=== PATIENT | male | born 1955 | race African-American/Black ===

== ENCOUNTER 2016-10-10 08:49 | Emergency (ER) | payer OTHER ==
[~2016-10-10] VITALS: Ht 182.9 cm; Wt 59.0 kg
[~2016-10-10 08:49] MED LIST: ACET30TA15 PO; ASPI81CH43 PO; ATOR20TA50 PO; CAR125T PO; CYAN500T2 PO; ENA2.5T PO; FER325T PO; FOLI1TAB51 PO; FURO20TA3 PO; MEGE40TA15 PO; PANT40TA2 PO; SPIR25TA88 PO; SUCR1TAB36 PO; THIA100T11 PO
[2016-10-10] MEDS ORDERED: KETOROLAC TROMETH 30 MG/ML 1ML VIAL IV ONE (10:00)
[2016-10-10 10:33] LABS: Hemoglobin 11.1 g/dL (13.5-17.5); Mean Corpuscular Hgb Conc. 31.8 g/dL (32.0-36.0); SUSPECT VIEW TRANSMISSION
[2016-10-10] MEDS ORDERED: HYDROcodone-ACET 5/325MG TAB PO ONE (11:00)
[2016-10-10 11:10] LABS: Basophils # (auto) 0 uL; Basophils % (auto) 0.5 % (0.0-2.0); Eosinophils # (auto) 0.5 uL; Eosinophils % (auto) 7.2 % (0.0-7.0); Lymphocytes # (auto) 2.1 uL; Lymphocytes % (auto) 28.6 % (10.0-50.0); Mean Corpuscular Volume 94.4 fL (80.0-100.0); Mean Platelet Volume 11.6 fL (7.4-10.4); Monocytes # (auto) 1.1 uL; Monocytes % (auto) 14.9 % (0.0-12.0); Neutrophils # (auto) 3.6 uL; Neutrophils % (auto) 48.8 % (37.0-80.0); Nucleated Red Blood Cells % 3.6 %; Platelet Count (auto) 231 10^3/uL (140-450); Red Cell Distribution Width 14.9 % (11.6-16.0); White Blood Cell 7.4 10^3/uL (4.4-10.8)
[2016-10-10 11:22] LABS: Albumin 2.9 g/dL (3.4-5.0); Alkaline Phosphatase 102 U/L (45-117); Amylase 119 U/L (25-115); Anion Gap 9 (5-15); Aspartate Aminotransferase 30 U/L (15-37); BUN/Creatinine Ratio 12.9; Bilirubin, Total 0.4 mg/dL (0.2-1.0); Blood Urea Nitrogen 16 mg/dL (7-18); Calcium 8.2 mg/dL (8.5-10.1); Carbon Dioxide 26 mmol/L (21-32); Chloride 107 mmol/L (98-107); GFR African American 76 mL/min; GFR Non-African American 63 mL/min; Glucose 145 mg/dL (74-106); Potassium 4.3 mmol/L (3.5-5.1); Sodium 142 mmol/L (136-145); Total Protein 7.1 g/dL (6.4-8.2)
[2016-10-10 12:54] VITALS: BP 115/59
== END 2016-10-10 13:32 | disposition home or self-care (01) ==
LOC: ER 08:49
DX: S33.5XXA Sprain of ligaments of lumbar spine, initial encounter (principal); R51 Headache; I10 Essential (primary) hypertension; I25.2 Old myocardial infarction; F17.210 Nicotine dependence, cigarettes, uncomplicated; Z86.73 Personal history of transient ischemic attack (TIA), and cerebral infarction without residual deficits; Z90.49 Acquired absence of other specified parts of digestive tract; Z98.61 Coronary angioplasty status; Z79.82 Long term (current) use of aspirin; X58.XXXA Exposure to other specified factors, initial encounter; Y93.89 Activity, other specified; Y99.8 Other external cause status; Y92.89 Other specified places as the place of occurrence of the external cause
CPT/HCPCS: 36415; 72110; 80053; 82150; 83690; 84484; 85025; 93005; 96374; 99285; J1885

== ENCOUNTER 2017-02-25 08:53 | Emergency (ER) | payer OTHER ==
[~2017-02-25] VITALS: Ht 182.9 cm; Wt 59.0 kg
[2017-02-25] MEDS ORDERED: SODIUM CHLORIDE 0.9% 1,000 ML IV ONE ×2 (09:26)
[2017-02-25 09:49] LABS: CONDITION Y; DEFINITIVE SEE PRINTOUT; Hematocrit 44.1 % (41.0-53.0); Hemoglobin 14.2 g/dL (13.5-17.5); Mean Corpuscular Hemoglobin 28.5 pg (28.0-32.0); Mean Corpuscular Hgb Conc. 32.3 g/dL (32.0-36.0); Mean Corpuscular Volume 88.4 fL (80.0-100.0); Mean Platelet Volume 12.5 fL (7.4-10.4); Platelet Count (auto) 372 10^3/uL (140-450); Red Cell Distribution Width 19.4 % (11.6-16.0); SUSPECT SEE PRINTOUT; White Blood Cell 5.5 10^3/uL (4.4-10.8)
[2017-02-25 09:56] LABS: Urine Blood Negative /uL (Negative); Urine Color Red (Yellow); Urine Glucose Normal (Normal); Urine Hyaline Cast MANY /lpf (0 - 2); Urine Ketone Negative (Negative); Urine Mucus FEW (None Seen); Urine Nitrite Negative (Negative); Urine RBC 3 /hpf (0 - 3); Urine Squamous Epithelial Cell FEW /hpf (<5); Urine pH 5.5 (5.0-8.0)
[2017-02-25 10:03] LABS: Urine Bilirubin Negative (Negative)
[2017-02-25 10:10] LABS: Metamyelocytes % 0; Myelocytes % 0; Promyelocytes % 0; Reactive Lymphocytes 0
[2017-02-25] MEDS ORDERED: ONDANSETRON HCL 4 MG/2 ML VIAL IV ONE (10:15)
[2017-02-25] MEDS ORDERED: MORPHINE SULFATE 4 MG/ML SYRG IV ONE (10:15)
[2017-02-25 10:24] LABS: Platelet Estimate Adequate
[2017-02-25 10:25] LABS: Anisocytosis Slight
[2017-02-25 10:36] LABS: Albumin 3.1 g/dL (3.4-5.0); BUN/Creatinine Ratio 10.3; Bilirubin, Total 0.6 mg/dL (0.2-1.0); Calcium 8.6 mg/dL (8.5-10.1); Potassium 3.2 mmol/L (3.5-5.1)
[2017-02-25 11:41] VITALS: BP 113/77
== END 2017-02-25 12:03 | disposition short-term general hospital (02) ==
LOC: ER 08:53
DX: K85.90 Acute pancreatitis without necrosis or infection, unspecified (principal); I10 Essential (primary) hypertension; I25.2 Old myocardial infarction; Z86.73 Personal history of transient ischemic attack (TIA), and cerebral infarction without residual deficits; Z79.82 Long term (current) use of aspirin; Z90.81 Acquired absence of spleen; F17.210 Nicotine dependence, cigarettes, uncomplicated
CPT/HCPCS: 36415; 71010; 74176; 80053; 81001; 82150; 83690; 85007; 85027; 93005; 96361; 96374; 96375; 99285; J2270; J2405; J7030

== ENCOUNTER 2017-05-10 09:47 | Inpatient (IN) | payer OTHER ==
[2017-05-09 20:00] VITALS: BP 103/80
[~2017-05-10] VITALS: Ht 185.4 cm; Wt 65.4 kg
[2017-05-10] MEDS ORDERED: KETOROLAC TROMETH 30 MG/ML 1ML VIAL IV ONE ×2 (10:30→12:45)
[2017-05-10 11:06] LABS: Basophils # (auto) 0.1 uL; Eosinophils # (auto) 0.4 uL; Hemoglobin 9.4 g/dL (13.5-17.5); Mean Platelet Volume 10.6 fL (6.9-10.8)
[2017-05-10 11:07] LABS: Basophils % (auto) 1.2 % (0.0-2.0); Eosinophils % (auto) 5.5 % (0.0-7.0); Hematocrit 30.6 % (41.0-53.0); Lymphocytes # (auto) 1.9 uL; Lymphocytes % (auto) 26.6 % (10.0-50.0); Mean Corpuscular Hemoglobin 27.4 pg (28.0-32.0); Mean Corpuscular Hgb Conc. 30.9 g/dL (32.0-36.0); Mean Corpuscular Volume 88.7 fL (80.0-100.0); Monocytes # (auto) 1.2 uL; Monocytes % (auto) 16.6 % (0.0-12.0); Neutrophils # (auto) 3.5 uL; Neutrophils % (auto) 50.1 % (37.0-80.0); Nucleated Red Blood Cells % 0.4 %; Platelet Count (auto) 292 10^3/uL (140-450); Red Cell Distribution Width 17.7 % (11.8-14.3)
[2017-05-10 11:28] LABS: Albumin 3.3 g/dL (3.4-5.0); BUN/Creatinine Ratio 11.6; Bilirubin, Total 0.7 mg/dL (0.2-1.0); Calcium 8.4 mg/dL (8.5-10.1); Potassium 3.4 mmol/L (3.5-5.1)
[2017-05-10 11:31] LABS: Magnesium 2.4 mg/dL (1.6-2.6)
[2017-05-10 12:06] LABS: B-Type Natriuretic Peptide 1927.22 pg/mL (0-100); Temperature: 23.9 C (20.0-25.0)
[2017-05-10] MEDS ORDERED: FUROSEMIDE 40 MG/4 ML VIAL IV ONE (12:45)
[2017-05-10 13:16] LABS: Burr Cells FEW; Giant Platelets Few; Platelet Estimate Adequate; Schistocytes FEW
[2017-05-10] MEDS ORDERED: MORPHINE SULF INJ 2 MG/ML SYRINGE 1ML IV PRN (14:30)
[2017-05-10] MEDS ORDERED: TEMAZEPAM 15 MG CAP PO PRN (14:30)
[2017-05-10] MEDS ORDERED: NITROGLYCERIN 0.4 MG SL TAB SL PRN (14:30)
[2017-05-10] MEDS ORDERED: DOCUSATE SOD 100 MG CAP PO PRN (14:30)
[2017-05-10] MEDS ORDERED: ONDANSETRON HCL 4 MG/2 ML VIAL IV PRN (14:30)
[2017-05-10] MEDS ORDERED: ACETAMINOPHEN 325 MG TAB PO PRN (14:30)
[2017-05-10] MEDS ORDERED: HYDROcodone-ACET 5/325MG TAB PO PRN (14:30)
[2017-05-10] MEDS: SUCRALFATE 1 GM/10 ML ORAL SUSP PO SCH ×2 (17:45→21:15)
[2017-05-10] MEDS: FERROUS SULFATE 325 MG TAB PO SCH (17:45)
[2017-05-10] MEDS: SPIRONOLACTONE 25 MG TAB PO SCH (17:45)
[2017-05-10] MEDS: BOOST PLUS 8 ounce PO SCH (17:46)
[2017-05-10] MEDS: FUROSEMIDE 40 MG/4 ML VIAL IV SCH (17:55)
[2017-05-10] MEDS: SODIUM CHLOR 0.9% PF (SALINE LOCK) 10ML VIAL IV SCH (21:15)
[2017-05-10] MEDS: PANTOPRAZOLE 40 MG TAB PO SCH (21:15)
[2017-05-10] MEDS: CARVEDILOL 12.5 MG TAB PO SCH (21:15)
[2017-05-10] MEDS: FAMOTIDINE 20 MG TAB PO SCH (21:16)
[2017-05-10] MEDS: MORPHINE SULF INJ 2 MG/ML SYRINGE 1ML IV PRN (21:16)
[2017-05-10 22:00] VITALS: BP 103/80
[2017-05-10] MEDS ORDERED: ATORVASTATIN 20 MG TAB PO SCH (22:00)
[2017-05-11 05:00] VITALS: BP 100/71
[2017-05-11] MEDS: SODIUM CHLOR 0.9% PF (SALINE LOCK) 10ML VIAL IV SCH ×2 (06:00→13:31)
[2017-05-11 06:03] LABS: Basophils # (auto) 0.1 uL; Eosinophils # (auto) 0.4 uL; Eosinophils % (auto) 5.9 % (0.0-7.0); Hematocrit 28.1 % (41.0-53.0); Hemoglobin 8.9 g/dL (13.5-17.5); Lymphocytes % (auto) 39.9 % (10.0-50.0); Mean Corpuscular Hemoglobin 28.1 pg (28.0-32.0); Mean Corpuscular Hgb Conc. 31.8 g/dL (32.0-36.0); Mean Corpuscular Volume 88.3 fL (80.0-100.0); Mean Platelet Volume 10.8 fL (6.9-10.8); Monocytes # (auto) 1.2 uL; Monocytes % (auto) 16.1 % (0.0-12.0); Neutrophils # (auto) 2.8 uL; Neutrophils % (auto) 37.1 % (37.0-80.0); Nucleated Red Blood Cells % 0.3 %; Platelet Count (auto) 262 10^3/uL (140-450); Red Cell Distribution Width 17.8 % (11.8-14.3); White Blood Cell 7.6 10^3/uL (4.4-10.8)
[2017-05-11 06:18] LABS: Albumin 2.8 g/dL (3.4-5.0); Calcium 8.4 mg/dL (8.5-10.1); Potassium 3.8 mmol/L (3.5-5.1)
[2017-05-11 06:20] LABS: BUN/Creatinine Ratio 16.9
[2017-05-11 06:23] LABS: Bilirubin, Total 0.4 mg/dL (0.2-1.0); Total Protein 5.8 g/dL (6.4-8.2)
[2017-05-11] MEDS: SUCRALFATE 1 GM/10 ML ORAL SUSP PO SCH ×2 (06:34→10:38)
[2017-05-11] MEDS: SPIRONOLACTONE 25 MG TAB PO SCH (06:34)
[2017-05-11] MEDS: FUROSEMIDE 40 MG/4 ML VIAL IV SCH (06:35)
[2017-05-11] MEDS: BOOST PLUS 8 ounce PO SCH ×2 (07:26→11:01)
[2017-05-11] MEDS: MORPHINE SULF INJ 2 MG/ML SYRINGE 1ML IV PRN (07:45)
[2017-05-11] MEDS: FERROUS SULFATE 325 MG TAB PO SCH (07:45)
[2017-05-11 08:00] VITALS: BP 107/77
[2017-05-11 09:05] LABS: Urine Bilirubin Negative (Negative); Urine Blood Negative /uL (Negative); Urine Color Yellow (Yellow); Urine Glucose Normal (Normal); Urine Ketone Negative (Negative); Urine Nitrite Negative (Negative); Urine RBC <1 /hpf (0 - 3); Urine Squamous Epithelial Cell FEW /hpf (<5); Urine Urobilinogen Normal (Negative)
[2017-05-11] MEDS: FAMOTIDINE 20 MG TAB PO SCH (09:25)
[2017-05-11] MEDS: CARVEDILOL 12.5 MG TAB PO SCH (09:25)
[2017-05-11] MEDS: PANTOPRAZOLE 40 MG TAB PO SCH (09:26)
[2017-05-11] MEDS ORDERED: ENALAPRIL MALEATE 2.5 MG TAB PO SCH (10:00)
[2017-05-11] MEDS ORDERED: ASPirin-EC 81 mg tab PO SCH (10:00)
[2017-05-11] MEDS ORDERED: MULTIPLE VITAMIN TAB PO SCH (10:00)
[2017-05-11] MEDS ORDERED: CYANOCOBALAMIN 500 MCG TAB PO SCH (10:00)
[2017-05-11] MEDS ORDERED: amLODIPine BESYLATE 5 MG TAB PO SCH (10:00)
[2017-05-11 11:57] VITALS: BP 107/77
[2017-05-11 13:22] VITALS: BP 107/77
== END 2017-05-11 12:00 | disposition home or self-care (01) | DRG 194 ==
LOC: ER 09:47 → TELE 09:48 → TELE-E-ADS 16:54 → TELE-CENTR 17:34
PROVIDERS: ADMIT Internal Medicine; ATTEND Internal Medicine
DX: I13.0 Hypertensive heart and chronic kidney disease with heart failure and stage 1 through stage 4 chronic kidney disease, or unspecified chronic kidney disease (principal); E44.0 Moderate protein-calorie malnutrition; F17.210 Nicotine dependence, cigarettes, uncomplicated; E87.6 Hypokalemia; D50.9 Iron deficiency anemia, unspecified; Z68.1 Body mass index [BMI] 19.9 or less, adult; I25.10 Atherosclerotic heart disease of native coronary artery without angina pectoris; I50.43 Acute on chronic combined systolic (congestive) and diastolic (congestive) heart failure; N18.2 Chronic kidney disease, stage 2 (mild); Z79.899 Other long term (current) drug therapy; I25.2 Old myocardial infarction; Z86.718 Personal history of other venous thrombosis and embolism; Z86.73 Personal history of transient ischemic attack (TIA), and cerebral infarction without residual deficits; Z98.61 Coronary angioplasty status
CPT/HCPCS: 36415; 71020; 80053; 81001; 83735; 83880; 84484; 85025; 85379; 93005; 93306; 96374; 96375; 96376; 99291; J1885

== ENCOUNTER 2017-06-29 09:15 | Emergency (ER) | payer OTHER ==
[~2017-06-29] VITALS: Ht 185.4 cm; Wt 55.3 kg
[~2017-06-29 09:15] MED LIST changes: -ACET30TA15 PO; -CYAN500T2 PO; -ENA2.5T PO; -FURO20TA3 PO; +FURO40TA PO
[2017-06-29 09:42] VITALS: BP 117/83
== END 2017-06-29 09:59 | disposition home or self-care (01) ==
LOC: ER 09:15
DX: J20.9 Acute bronchitis, unspecified (principal); I13.10 Hypertensive heart and chronic kidney disease without heart failure, with stage 1 through stage 4 chronic kidney disease, or unspecified chronic kidney disease; I50.9 Heart failure, unspecified; N18.9 Chronic kidney disease, unspecified; I25.2 Old myocardial infarction; Z86.73 Personal history of transient ischemic attack (TIA), and cerebral infarction without residual deficits; Z79.899 Other long term (current) drug therapy; Z87.891 Personal history of nicotine dependence
CPT/HCPCS: 99283; J7030

== ENCOUNTER 2017-07-14 12:46 | Inpatient (IN) | payer OTHER ==
[~2017-07-14] VITALS: Ht 182.9 cm; Wt 51.5 kg
[2017-07-14] MEDS ORDERED: SODIUM CHLORIDE 0.9% 1,000 ML IV ONE (12:59)
[2017-07-14] MEDS ORDERED: ASPirin 81 mg TAB PO ONE (13:00)
[2017-07-14 13:39] LABS: Eosinophils # (auto) 0.1 uL; Hemoglobin 10.8 g/dL (13.5-17.5); Mean Platelet Volume 11.1 fL (6.9-10.8); Monocytes # (auto) 0.4 uL; Monocytes % (auto) 7.4 % (0.0-12.0)
[2017-07-14 13:41] LABS: Basophils # (auto) 0.1 uL; Basophils % (auto) 1.2 % (0.0-2.0); Eosinophils % (auto) 1.5 % (0.0-7.0); Hematocrit 36.1 % (41.0-53.0); Lymphocytes # (auto) 2.7 uL; Lymphocytes % (auto) 51.6 % (10.0-50.0); Mean Corpuscular Hemoglobin 25.4 pg (28.0-32.0); Mean Corpuscular Hgb Conc. 29.9 g/dL (32.0-36.0); Mean Corpuscular Volume 85.2 fL (80.0-100.0); Neutrophils % (auto) 38.3 % (37.0-80.0); Platelet Count (auto) 273 10^3/uL (140-450); White Blood Cell 5.2 10^3/uL (4.4-10.8)
[2017-07-14 13:43] LABS: Nucleated Red Blood Cells % 3.3 %; Red Cell Distribution Width 20.5 % (11.8-14.3)
[2017-07-14 13:53] LABS: Lactic Acid w/Reflex 3.6 mmol/L (0.4-2.0)
[2017-07-14 13:54] LABS: INR 1.25 (0.9-1.15); Partial Thromboplastin Time 28.5 sec (22.64-33.71); Prothrombin Time 13.7 sec (9.37-12.3)
[2017-07-14 13:59] LABS: B-Type Natriuretic Peptide 2183.32 pg/mL (0-100)
[2017-07-14 14:03] LABS: Albumin 3.6 g/dL (3.4-5.0); Alkaline Phosphatase 96 U/L (45-117); Anion Gap 11 (5-15); Aspartate Aminotransferase 22 U/L (15-37); BUN/Creatinine Ratio 11.6; Bilirubin, Total 0.7 mg/dL (0.2-1.0); Blood Urea Nitrogen 20 mg/dL (7-18); Calcium 8.5 mg/dL (8.5-10.1); Carbon Dioxide 24 mmol/L (21-32); Chloride 105 mmol/L (98-107); GFR African American 52 mL/min; GFR Non-African American 43 mL/min; Glucose 185 mg/dL (74-106); Potassium 3.5 mmol/L (3.5-5.1); Sodium 140 mmol/L (136-145); Total Protein 7.9 g/dL (6.4-8.2)
[2017-07-14 14:04] LABS: Temperature: 22.1 C (20.0-25.0)
[2017-07-14] MEDS ORDERED: metroNIDAZOLE 500MG/100ML 100 ML IV ONE (14:15)
[2017-07-14] MEDS ORDERED: PIPERACILLIN-TAZOB 3.375GM 50 ML IV ONE (14:15)
[2017-07-14 14:25] LABS: REFLEX LACTIC ACID YES OR NO YES
[2017-07-14] MEDS ORDERED: FUROSEMIDE 20 MG/2 ML VIAL IV ONE (14:30)
[2017-07-14 14:40] LABS: Anisocytosis Slight; Hypochromia Slight; Platelet Estimate Adequate
[2017-07-14 14:41] LABS: Burr Cells FEW; Giant Platelets Few
[2017-07-14] MEDS ORDERED: MORPHINE SULF INJ 2 MG/ML SYRINGE 1ML IV PRN (15:00)
[2017-07-14] MEDS ORDERED: ONDANSETRON HCL 4 MG/2 ML VIAL IV PRN (15:00)
[2017-07-14] MEDS ORDERED: NITROGLYCERIN 0.4 MG SL TAB SL PRN (15:00)
[2017-07-14] MEDS ORDERED: POTASSIUM CHL 10% (20 MEQ/15ML) 15ml ORAL SOLN PO ONE (15:00)
[2017-07-14 15:30] VITALS: BP 131/70
[2017-07-14] MEDS ORDERED: FUROSEMIDE 20 MG/2 ML VIAL IV SCH (18:00)
[2017-07-14] MEDS: HYDROcodone-ACET 5/325MG TAB PO PRN (18:11)
[2017-07-14] MEDS: FERROUS SULFATE 325 MG TAB PO SCH (18:11)
[2017-07-14] MEDS: IPRATROPIUM BROM 0.5 MG/2.5ML INH SOL NEB SCH (19:30)
[2017-07-14 20:15] LABS: Urine Bilirubin Negative (Negative); Urine Blood Negative /uL (Negative); Urine Color Yellow (Yellow); Urine Glucose Normal (Normal); Urine Hyaline Cast MOD /lpf (0 - 2); Urine Ketone Negative (Negative); Urine Nitrite Negative (Negative); Urine RBC 1 /hpf (0 - 3); Urine Squamous Epithelial Cell FEW /hpf (<5); Urine Urobilinogen Normal (Negative); Urine pH 5.5 (5.0-8.0)
[2017-07-14 22:00] VITALS: BP 104/61
[2017-07-14] MEDS: APIXABAN 2.5 MG TAB PO SCH (22:03)
[2017-07-14] MEDS: CARVEDILOL 3.125 MG TAB PO SCH (22:03)
[2017-07-14] MEDS: ATORVASTATIN 20 MG TAB PO SCH (22:04)
[2017-07-14] MEDS ORDERED: MORPHINE SULF INJ 2 MG/ML SYRINGE 1ML IV ONE (22:30)
[2017-07-14 23:00] VITALS: BP 104/61
[2017-07-15] MEDS ORDERED: PNEUMOCOCCAL VACC POLYS 25 MCG/0.5 ML VIAL IM SCH (04:15)
[2017-07-15 06:00] VITALS: BP 99/67
[2017-07-15] MEDS: IPRATROPIUM BROM 0.5 MG/2.5ML INH SOL NEB SCH ×4 (06:05→18:29)
[2017-07-15] MEDS: ALBUTEROL SULF 2.5 MG/0.5ML(0.5%) NEB SOLN NEB PRN ×2 (06:05→11:51)
[2017-07-15 07:12] LABS: Calcium 8.6 mg/dL (8.5-10.1); Potassium 3.9 mmol/L (3.5-5.1)
[2017-07-15 07:21] LABS: Basophils # (auto) 0.1 uL; Basophils % (auto) 1.1 % (0.0-2.0); Platelet Count (auto) 243 10^3/uL (140-450)
[2017-07-15 07:30] VITALS: BP 99/62
[2017-07-15 07:30] LABS: Eosinophils # (auto) 0.2 uL; Eosinophils % (auto) 3.3 % (0.0-7.0); Hematocrit 30.4 % (41.0-53.0); Hemoglobin 9.5 g/dL (13.5-17.5); Lymphocytes # (auto) 2.2 uL; Mean Corpuscular Hemoglobin 25.9 pg (28.0-32.0); Mean Corpuscular Hgb Conc. 31.3 g/dL (32.0-36.0); Mean Corpuscular Volume 82.7 fL (80.0-100.0); Mean Platelet Volume 11.2 fL (6.9-10.8); Monocytes # (auto) 0.7 uL; Monocytes % (auto) 11.7 % (0.0-12.0); Neutrophils # (auto) 2.6 uL; Neutrophils % (auto) 45.9 % (37.0-80.0); White Blood Cell 5.8 10^3/uL (4.4-10.8)
[2017-07-15 07:40] LABS: Nucleated Red Blood Cells % 3.3 %; Red Cell Distribution Width 20.3 % (11.8-14.3)
[2017-07-15 09:00] VITALS: BP 103/73
[2017-07-15] MEDS: APIXABAN 2.5 MG TAB PO SCH ×2 (09:29→22:26)
[2017-07-15] MEDS: PANTOPRAZOLE 40 MG TAB PO SCH (09:29)
[2017-07-15] MEDS: SPIRONOLACTONE 25 MG TAB PO SCH (09:29)
[2017-07-15] MEDS: ASPirin 81 mg TAB PO SCH (09:30)
[2017-07-15] MEDS: ENALAPRIL MALEATE 2.5 MG TAB PO SCH (09:30)
[2017-07-15] MEDS: CARVEDILOL 3.125 MG TAB PO SCH ×2 (09:30→22:25)
[2017-07-15] MEDS: FERROUS SULFATE 325 MG TAB PO SCH ×2 (09:31→17:34)
[2017-07-15] MEDS: HYDROcodone-ACET 5/325MG TAB PO PRN ×2 (09:32→17:34)
[2017-07-15] MEDS ORDERED: NITROGLYCERIN 0.4 MG SL TAB SL ONE (10:00)
[2017-07-15] MEDS ORDERED: FUROSEMIDE 40 MG/4 ML VIAL IV ONE (10:00)
[2017-07-15] MEDS ORDERED: POTASSIUM CHL 20 Meq TABLET PO SCH (10:00)
[2017-07-15] MEDS ORDERED: FUROSEMIDE 40 MG/4 ML VIAL IV SCH (10:00)
[2017-07-15 13:00] VITALS: BP 93/68
[2017-07-15 17:00] VITALS: BP 92/66
[2017-07-15 22:00] VITALS: BP 97/64
[2017-07-15] MEDS: ATORVASTATIN 20 MG TAB PO SCH (22:26)
[2017-07-16] MEDS ORDERED: traZODone HCL 50 MG TAB PO ONE (01:00)
[2017-07-16] MEDS: MORPHINE SULF INJ 2 MG/ML SYRINGE 1ML IV PRN ×3 (01:06→20:09)
[2017-07-16 05:32] VITALS: BP 103/62
[2017-07-16] MEDS: ALBUTEROL SULF 2.5 MG/0.5ML(0.5%) NEB SOLN NEB PRN ×2 (06:33→11:22)
[2017-07-16] MEDS: IPRATROPIUM BROM 0.5 MG/2.5ML INH SOL NEB SCH ×4 (06:33→18:12)
[2017-07-16 06:48] LABS: Calcium 8.9 mg/dL (8.5-10.1)
[2017-07-16 06:51] LABS: BUN/Creatinine Ratio 14.9
[2017-07-16 06:57] LABS: Potassium 5.6 mmol/L (3.5-5.1)
[2017-07-16] MEDS: FERROUS SULFATE 325 MG TAB PO SCH ×2 (08:36→18:07)
[2017-07-16 09:00] VITALS: BP 93/61
[2017-07-16] MEDS: ASPirin 81 mg TAB PO SCH (09:36)
[2017-07-16] MEDS: SPIRONOLACTONE 25 MG TAB PO SCH (09:36)
[2017-07-16] MEDS: PANTOPRAZOLE 40 MG TAB PO SCH (09:36)
[2017-07-16] MEDS: CARVEDILOL 3.125 MG TAB PO SCH ×2 (09:37→21:48)
[2017-07-16] MEDS: FUROSEMIDE 40 MG TAB PO SCH (09:38)
[2017-07-16] MEDS: ENALAPRIL MALEATE 2.5 MG TAB PO SCH (09:38)
[2017-07-16 13:00] VITALS: BP 75/52
[2017-07-16 17:00] VITALS: BP 83/62
[2017-07-16] MEDS: ATORVASTATIN 20 MG TAB PO SCH (21:48)
[2017-07-16 22:00] VITALS: BP 85/65
[2017-07-16] MEDS ORDERED: traZODone HCL 50 MG TAB PO SCH (22:00)
[2017-07-17 06:00] VITALS: BP 105/51
[2017-07-17] MEDS: IPRATROPIUM BROM 0.5 MG/2.5ML INH SOL NEB SCH ×3 (06:15→11:33)
[2017-07-17] MEDS: ALBUTEROL SULF 2.5 MG/0.5ML(0.5%) NEB SOLN NEB PRN (06:15)
[2017-07-17 06:39] LABS: BUN/Creatinine Ratio 13.3; Calcium 8.8 mg/dL (8.5-10.1); Potassium 4.7 mmol/L (3.5-5.1)
[2017-07-17] MEDS: FERROUS SULFATE 325 MG TAB PO SCH (07:59)
[2017-07-17] MEDS: ASPirin 81 mg TAB PO SCH (10:12)
[2017-07-17] MEDS: SPIRONOLACTONE 25 MG TAB PO SCH (10:12)
[2017-07-17] MEDS: CARVEDILOL 3.125 MG TAB PO SCH (10:13)
[2017-07-17] MEDS: FUROSEMIDE 40 MG TAB PO SCH (10:13)
[2017-07-17] MEDS: ENALAPRIL MALEATE 2.5 MG TAB PO SCH (10:14)
[2017-07-17] MEDS: PANTOPRAZOLE 40 MG TAB PO SCH (10:14)
[2017-07-17 10:43] VITALS: BP 100/67
== END 2017-07-17 12:00 | disposition home or self-care (01) | DRG 194 ==
LOC: ER 12:46 → TELE 12:47 → TELE-CENTR 20:32
PROVIDERS: ADMIT Internal Medicine; ATTEND Internal Medicine
DX: I13.0 Hypertensive heart and chronic kidney disease with heart failure and stage 1 through stage 4 chronic kidney disease, or unspecified chronic kidney disease (principal); E87.2 Acidosis; E44.0 Moderate protein-calorie malnutrition; K86.89 Other specified diseases of pancreas; I08.1 Rheumatic disorders of both mitral and tricuspid valves; I25.10 Atherosclerotic heart disease of native coronary artery without angina pectoris; J44.9 Chronic obstructive pulmonary disease, unspecified; I50.23 Acute on chronic systolic (congestive) heart failure; D64.9 Anemia, unspecified; N18.3 Chronic kidney disease, stage 3 (moderate); I25.5 Ischemic cardiomyopathy; I25.2 Old myocardial infarction; Z86.718 Personal history of other venous thrombosis and embolism; Z86.73 Personal history of transient ischemic attack (TIA), and cerebral infarction without residual deficits; Z87.891 Personal history of nicotine dependence; Z95.5 Presence of coronary angioplasty implant and graft; Z79.899 Other long term (current) drug therapy; Z90.49 Acquired absence of other specified parts of digestive tract; Z79.82 Long term (current) use of aspirin; Z68.1 Body mass index [BMI] 19.9 or less, adult; Z23 Encounter for immunization
CPT/HCPCS: 36415; 71010; 71020; 80048; 80053; 81001; 83036; 83605; 83690; 83880; 84132; 84484; 85025; 85610; 85730; 86301; 87040; 93005; 94640; 96361; 96365; 96368; 96375; J2543; J3490